=== PATIENT | female | born 1995 | race African-American/Black ===

== ENCOUNTER 2018-10-12 17:19 | Emergency (ER) | payer MEDICARE, MEDICAID ==
[~2018-10-12] VITALS: Ht 149.9 cm; Wt 81.0 kg
[2018-10-12 17:24] VITALS: BP 117/67
[2018-10-12] MEDS ORDERED: LIDOCAINE-MPF 1%, 5ML ONE (18:19)
[2018-10-12] MEDS ORDERED: LIDOCAINE 1%-EPI 1:100K, 20ML SQ ONE (18:30)
--- NOTE | 2018-10-12 19:06 | NUR ---
MONIQUE AT BEDSIDE FOR I&D
--- NOTE | 2018-10-12 19:45 | NUR ---
FEMALE UNDERWEAR, GAUZE TO PT FOR DRESSINGS
[2018-10-14] MEDS ORDERED: SULF1TAB24 PO (16:55)
[2018-10-14] MEDS ORDERED: CEPH-368 PO (16:55)
== END 2018-10-12 20:01 | disposition home or self-care (01) ==
LOC: EDSEX 17:19 → ED 19:45
DX: N76.4 Abscess of vulva (principal)
CPT/HCPCS: 56405; 99284; J3490

== ENCOUNTER 2019-04-20 17:09 | Emergency (ER) | payer MEDICARE, MEDICAID ==
[~2019-04-20] VITALS: Ht 149.9 cm; Wt 75.0 kg
[~2019-04-20 17:09] MED LIST: CEPH-368 PO; SULF1TAB24 PO
[2019-04-20] MEDS ORDERED: LIDOCAINE-MPF 1%, 5ML ONE (17:41)
[2019-04-20] MEDS ORDERED: LIDOCAINE 1%, 10ML INFIL ONE (18:00)
[2019-04-20 18:26] VITALS: BP 122/78
[2019-04-20] MEDS ORDERED: ONDANSETRON ODT 4 MG ONE (18:27)
[2019-04-20] MEDS ORDERED: ONDANSETRON ODT 4 MG PO ONE (18:30)
--- NOTE | 2019-04-20 18:30 | NUR ---
L THIGH ABSCESS DRAINED BY ER PA. PT C/O NAUSEA PRIOR TO DISCHARGE. VSS. ER PA NOTIFIED, PT MEDICATED WITH ZOFRAN ODT. PT STATES SHE FEELS READY TO BE DISCHARGED. D/C INSTRUCTIONS, MEDS & F/U APPT RV'WD WITH PT, SHE VERBALIZES UNDERSTANDING. RX GIVEN X1. PT AMBULATED OUT OF ED WITHOUT DIFFICULTY.
== END 2019-04-20 18:36 | disposition home or self-care (01) ==
LOC: ED 18:30
DX: L02.416 Cutaneous abscess of left lower limb (principal)
CPT/HCPCS: 10060; 99283; J3490; Q0162

== ENCOUNTER 2019-04-21 11:03 | Emergency (ER) | payer MEDICARE, MEDICAID ==
[~2019-04-21] VITALS: Ht 149.9 cm; Wt 74.8 kg
[2019-04-21 11:11] VITALS: BP 115/77
--- NOTE | 2019-04-21 11:27 | NUR ---
PT HAS CO OF SMALL ABCESS IN UPPER THIGH. WAS HERE YESTERDAY FOR SAME CO. STARTED PRESCRIBED ABX TODAY.
--- NOTE | 2019-04-21 11:41 | NUR ---
Patient/Caregiver given discharge instructions and they have confirmed that they understand the instructions. Patient ambulatory with steady gait.
== END 2019-04-21 11:42 | disposition home or self-care (01) ==
LOC: ED 11:31
DX: L02.416 Cutaneous abscess of left lower limb (principal); L02.415 Cutaneous abscess of right lower limb
CPT/HCPCS: 99282

== ENCOUNTER 2019-04-23 09:56 | Emergency (ER) | payer MEDICARE, MEDICAID ==
[~2019-04-23] VITALS: Ht 149.9 cm; Wt 75.6 kg
[2019-04-23 10:08] VITALS: BP 123/80
[2019-04-23] MEDS ORDERED: LIDOCAINE-MPF 1%, 5ML INFIL ONE (10:30)
[2019-04-23] MEDS ORDERED: LIDOCAINE-MPF 1%, 5ML ONE (11:06)
== END 2019-04-23 12:14 | disposition home or self-care (01) ==
LOC: ED 11:42
DX: L02.416 Cutaneous abscess of left lower limb (principal); L02.415 Cutaneous abscess of right lower limb
CPT/HCPCS: 10061; 99284